=== PATIENT | female | born 1935 | race Asian ===

== ENCOUNTER → 2017-07-19 | Outpatient (CLI) | payer OTHER ==
[~2017-07-19] MED LIST: ATOR40TA71 PO; CLON0.1T PO; CLOP75TA14 PO; FELO10TA31 PO; HUMALOG; INSLAN SQ; OLME5TAB PO; PANT40TA25 PO; PREG50 PO; ROSU10 PO
== END | disposition home or self-care (01) ==
LOC: RADPV 09:38
PROVIDERS: ATTEND Internal Medicine
DX: M16.0 Bilateral primary osteoarthritis of hip (principal)
CPT/HCPCS: 72170

== ENCOUNTER 2021-09-09 14:07 | Emergency (ER) | payer MEDICARE ==
[~2021-09-09] VITALS: Ht 160 cm; Wt 68.2 kg
[~2021-09-09 14:07] MED LIST changes: -FELO10TA31 PO; +FELO10TA46 PO; +PANT-31 PO; -PANT40TA25 PO; -ROSU10 PO; +ROSU10TA72 PO
[2021-09-09 16:03] LABS: BASOPHILS % (AUTO) 2.5 % (0.0-2.0); EOSINOPHILS % (AUTO) 9.7 % (1.0-6.0); HEMATOCRIT 35.2 % (36-46); HEMOGLOBIN 11.6 g/dL (12.0-16.0); LYMPHOCYTES % (AUTO) 30.6 % (22.0-44.0); MEAN CORPUSCULAR HEMOGLOBIN 29.7 pg (26.0-34.0); MEAN CORPUSCULAR HGB CONC 32.8 G/dL (31.0-37.0); MEAN CORPUSCULAR VOLUME 91 fL (80-100); MONOCYTES # (AUTO) 0.5 K/uL (0.1-1.0); MONOCYTES % (AUTO) 7.6 % (2.0-9.0); NEUTROPHILS # (AUTO) 3.2 K/uL (1.8-7.7); NEUTROPHILS % (AUTO) 49.6 % (40.0-70.0); PLATELET COUNT (AUTO) 226 K/uL (150-450); RED BLOOD CELL COUNT(AUTO) 3.89 MIL/uL (4.00-5.20); RED CELL DISTRIBUTION WIDTH 14.3 % (11.5-14.5)
[2021-09-09 16:13] LABS: ANION GAP 3 mmol/L (8-16); CARBON DIOXIDE 34 mmol/L (22-29); CHLORIDE 108 mmol/L (98-107); CREATININE 0.68 mg/dL (0.60-1.30); GLUCOSE,RANDOM 95 mg/dL (70-110); SODIUM SERUM 145 mmol/L (136-145); UREA NITROGEN, BLOOD 18 mg/dL (7-18)
[2021-09-09 16:16] LABS: GLOMERULAR FILTR. RATE CALC > 60 mL/min (>60)
[2021-09-09 16:18] LABS: PROTHROMBIN TIME 10.3 SEC (9.4-11.6)
[2021-09-09 16:19] LABS: ALANINE AMINOTRANSFERASE 45 U/L (12-78); ALBUMIN 3.7 g/dL (3.4-5.0); ALKALINE PHOSPHATASE 97 U/L (46-116); ASPARTATE AMINOTRANSFERASE 32 U/L (15-37); BILIRUBIN,TOTAL 0.7 mg/dL (0.1-1.0); TOTAL PROTEIN, SERUM 7.3 g/dL (6.4-8.2)
[2021-09-09 16:53] VITALS: BP 170/72
[2021-09-09] MEDS ORDERED: ACETAMINOPHEN 500 MG TABLET PO ONE (17:15)
== END 2021-09-09 17:39 | disposition home or self-care (01) ==
LOC: EMS 14:12
DX: R25.2 Cramp and spasm (principal); M79.662 Pain in left lower leg; I10 Essential (primary) hypertension; I25.2 Old myocardial infarction; E11.9 Type 2 diabetes mellitus without complications; E78.00 Pure hypercholesterolemia, unspecified; F32.9 Major depressive disorder, single episode, unspecified; Z88.0 Allergy status to penicillin; Z88.1 Allergy status to other antibiotic agents; Z79.899 Other long term (current) drug therapy; Z79.4 Long term (current) use of insulin
CPT/HCPCS: 80053; 82962; 85025; 85610; 93971; 99284

== ENCOUNTER 2022-07-11 05:51 | Emergency (ER) | payer MEDICARE, OTHER ==
[~2022-07-11] VITALS: Ht 152.4 cm; Wt 56.8 kg
[~2022-07-11 05:51] MED LIST changes: -OLME5TAB PO; +OLME5TAB32 PO
[2022-07-11] MEDS ORDERED: HYDROCODONE/ACETAMINOPHEN 5-325 MG TABLET PO ONE (06:30)
[2022-07-11 06:31] LABS: BASOPHILS % (AUTO) 1.2 % (0.0-2.0); EOSINOPHILS % (AUTO) 6.6 % (1.0-6.0); HEMATOCRIT 36.6 % (36-46); HEMOGLOBIN 12.2 g/dL (12.0-16.0); LYMPHOCYTES # (AUTO) 1.3 K/uL (1.0-4.8); LYMPHOCYTES % (AUTO) 27.5 % (22.0-44.0); MEAN CORPUSCULAR HEMOGLOBIN 30.2 pg (26.0-34.0); MEAN CORPUSCULAR HGB CONC 33.4 G/dL (31.0-37.0); MEAN CORPUSCULAR VOLUME 90 fL (80-100); MONOCYTES # (AUTO) 0.5 K/uL (0.1-1.0); MONOCYTES % (AUTO) 9.8 % (2.0-9.0); NEUTROPHILS # (AUTO) 2.7 K/uL (1.8-7.7); NEUTROPHILS % (AUTO) 54.9 % (40.0-70.0); PLATELET COUNT (AUTO) 150 K/uL (150-450); RED BLOOD CELL COUNT(AUTO) 4.05 MIL/uL (4.00-5.20); RED CELL DISTRIBUTION WIDTH 13.2 % (11.5-14.5)
[2022-07-11 06:44] LABS: PROTHROMBIN TIME 10.8 SEC (9.4-11.6)
[2022-07-11 06:46] LABS: ANION GAP 5 mmol/L (8-16); CALCIUM, TOTAL 9.3 mg/dL (8.8-10.5); CARBON DIOXIDE 29 mmol/L (22-29); CHLORIDE 104 mmol/L (98-107); CREATININE 0.85 mg/dL (0.60-1.30); GLUCOSE,RANDOM 287 mg/dL (70-110); POTASSIUM 4.3 mmol/L (3.5-5.1); SODIUM SERUM 138 mmol/L (136-145); UREA NITROGEN, BLOOD 26 mg/dL (7-18)
[2022-07-11 06:47] LABS: GLOMERULAR FILTR. RATE CALC > 60 mL/min (>60)
[2022-07-11 06:55] LABS: ALANINE AMINOTRANSFERASE 30 U/L (12-78); ALBUMIN 3.5 g/dL (3.4-5.0); ALKALINE PHOSPHATASE 129 U/L (46-116); ASPARTATE AMINOTRANSFERASE 27 U/L (15-37); BILIRUBIN,TOTAL 0.5 mg/dL (0.1-1.0); CREATINE KINASE, TOTAL ONLY 68 U/L (26-192); TOTAL PROTEIN, SERUM 6.6 g/dL (6.4-8.2)
[2022-07-11 07:05] LABS: B-TYPE NATRIURETIC PEPTIDE 193 pg/mL (0-100)
[2022-07-11] MEDS ORDERED: METOPROLOL TARTRATE 25 MG TABLET PO ONE (09:45)
[2022-07-11 10:01] VITALS: BP 197/86
== END 2022-07-11 11:37 | disposition home or self-care (01) ==
LOC: EMS 05:53
DX: R07.9 Chest pain, unspecified (principal); I25.10 Atherosclerotic heart disease of native coronary artery without angina pectoris; I25.2 Old myocardial infarction; I10 Essential (primary) hypertension; F32.A Depression, unspecified; E11.9 Type 2 diabetes mellitus without complications; E78.00 Pure hypercholesterolemia, unspecified; Z90.49 Acquired absence of other specified parts of digestive tract; Z98.890 Other specified postprocedural states; Z88.0 Allergy status to penicillin; Z88.1 Allergy status to other antibiotic agents; Z88.8 Allergy status to other drugs, medicaments and biological substances
CPT/HCPCS: 71045; 80053; 82550; 83605; 83880; 84484; 85025; 85610; 85730; 93005; 99285; 36415-L1; 36415-TC

== ENCOUNTER 2022-07-28 13:28 | Emergency (ER) | payer MEDICARE, OTHER ==
[~2022-07-28] VITALS: Ht 152.4 cm; Wt 72.0 kg
[2022-07-28] MEDS ORDERED: ATOR20TA86 PO (13:58)
[2022-07-28] MEDS ORDERED: DOCU-385 PO (13:58)
[2022-07-28] MEDS ORDERED: AMLO2.5T29 PO (13:58)
[2022-07-28] MEDS ORDERED: INSU100I24 SQ (13:58)
[2022-07-28] MEDS ORDERED: METO25 PO (13:58)
[2022-07-28] MEDS ORDERED: LOSA-382 PO (13:58)
[2022-07-28] MEDS ORDERED: BACL10TA PO (13:58)
[2022-07-28] MEDS ORDERED: BACITRACIN 0.9 GM PACKET OINTMENT TP ONE (14:30)
[2022-07-28] MEDS ORDERED: MUPI15CR12 TP (14:45)
[2022-07-28 17:24] VITALS: BP 108/48
== END 2022-07-28 17:29 | disposition home or self-care (01) ==
LOC: EMS 13:30
DX: E11.65 Type 2 diabetes mellitus with hyperglycemia (principal); E78.00 Pure hypercholesterolemia, unspecified; F32.9 Major depressive disorder, single episode, unspecified; L90.5 Scar conditions and fibrosis of skin; I10 Essential (primary) hypertension; I25.10 Atherosclerotic heart disease of native coronary artery without angina pectoris; Z86.73 Personal history of transient ischemic attack (TIA), and cerebral infarction without residual deficits; Z90.89 Acquired absence of other organs; Z88.0 Allergy status to penicillin
CPT/HCPCS: 99283

== ENCOUNTER 2022-10-23 00:20 | Emergency (ER) | payer MEDICARE, OTHER ==
[~2022-10-23] VITALS: Ht 152.4 cm; Wt 72.0 kg
[~2022-10-23 00:20] MED LIST changes: +AMLO2.5T29 PO; +ATOR20TA86 PO; -ATOR40TA71 PO; +BACL10TA PO; -CLON0.1T PO; -CLOP75TA14 PO; +DOCU-385 PO; -FELO10TA46 PO; -INSLAN SQ; +INSU100I24 SQ; +LOSA-382 PO; +METO25 PO; +MUPI15CR12 TP; -OLME5TAB32 PO; -PANT-31 PO; -ROSU10TA72 PO
[2022-10-23 01:00] VITALS: BP 168/89
== END 2022-10-23 04:13 | disposition home or self-care (01) ==
LOC: EMS 00:22
DX: S80.02XA Contusion of left knee, initial encounter (principal); S80.01XA Contusion of right knee, initial encounter; I25.10 Atherosclerotic heart disease of native coronary artery without angina pectoris; I10 Essential (primary) hypertension; F32.A Depression, unspecified; E11.9 Type 2 diabetes mellitus without complications; E78.00 Pure hypercholesterolemia, unspecified; Z90.49 Acquired absence of other specified parts of digestive tract; Z98.890 Other specified postprocedural states; Z88.0 Allergy status to penicillin; Z88.1 Allergy status to other antibiotic agents; W01.0XXA Fall on same level from slipping, tripping and stumbling without subsequent striking against object, initial encounter; Y93.89 Activity, other specified; Y92.89 Other specified places as the place of occurrence of the external cause; Y99.8 Other external cause status
CPT/HCPCS: 99283

== ENCOUNTER → 2022-11-21 | Outpatient (CLI) | payer MEDICARE, OTHER | END | disposition home or self-care (01) | LOC: RADPV 09:23 | PROVIDERS: ATTEND Internal Medicine Cardiovascular Disease | DX: I70.213 Atherosclerosis of native arteries of extremities with intermittent claudication, bilateral legs (principal); Z86.718 Personal history of other venous thrombosis and embolism | CPT/HCPCS: 93925; 93970 ==